=== PATIENT | female | born 1960 | race Caucasian/White ===

== ENCOUNTER 2019-05-08 12:54 | Emergency (ER) | payer MEDICARE, MEDICAID ==
[~2019-05-08] VITALS: Ht 167 cm; Wt 83.3 kg
--- NOTE | 2019-05-08 13:18 | ED GI ---
General Stated Complaint: DIARRHEA Source of Information: Patient Exam Limitations: No Limitations History of Present Illness Date Seen by Provider: May 08, 2019 Time Seen by Provider: 13:10 Initial Comments 58-year-old female brought in with diarrhea. Patient has had diarrhea for 2 weeks. However she also has a history of diarrhea on and off for years. She reports her this round her diarrhea has been going on for 2 weeks. She has seen her primary care provider and had stool studies done but does not know the results. Patient is had labs that did not show anything irregular and an outpatient basis. Patient is currently not taking anything for it. Patient was diagnosed with a UTI started on Macrobid however this was after the diarrhea started. Patient reports that she is having difficulty controlling the diarrhea and comes in because of that. Allergies and Home Medications Allergies Coded Allergies: ciprofloxacin (Unverified Adverse Reaction, Unknown, 05/08/19) prednisone (Unverified Adverse Reaction, Unknown, 05/08/19) soap (Unverified Adverse Reaction, Unknown, 05/08/19) Dial Soap Home Medications Albuterol Sulfate 1 Puff Puff, 2 PUFF INH Q6H PRN for SHORTNESS OF BREATH, (Reported) 1 PUFF = 90 MCG Biotin 10 Mg Tablet, 10 MG PO DAILY, (Reported) Ferrous Sulfate 325 Mg Tablet, 325 MG PO DAILY, (Reported) Glimepiride 2 Mg Tablet, 2 MG PO DAILY, (Reported) Lisinopril/Hydrochlorothiazide 1 Each Tablet, 1 TAB PO DAILY, (Reported) Multivitamin 1 Each Tablet, 1 EACH PO DAILY, (Reported) Patient Home Medication List Home Medication List Reviewed: Yes Review of Systems Review of Systems Constitutional: No chills, No fever Respiratory: Denies Cough Cardiovascular: Denies Chest Pain Gastrointestinal: Denies Abdominal Pain; Diarrhea, Nausea Genitourinary: No Symptoms Reported Musculoskeletal: no symptoms reported Skin: no symptoms reported Past Dutdius-Ltiqyu-Ofvizk Hx Past Med/Social Hx: Reviewed Nursing Past Med/Soc Hx Patient Social History Recent Foreign Travel: No Contact w/Someone Who Travel: No Physical Exam Vital Signs Vital Signs - First Documented 05/08/19 13:00 Temp 36.4 Pulse 73 Resp 16 B/P (MAP) 120/72 (88) Pulse Ox 98 O2 Delivery Room Air Capillary Refill : Height/Weight/BMI Height: '" Weight: lbs. oz. kg; BMI Method: General Appearance: WD/WN, no apparent distress HEENT: PERRL/EOMI Respiratory: lungs clear, normal breath sounds Cardiovascular: normal peripheral pulses, regular rate, rhythm Gastrointestinal: non tender, soft Back: no CVA tenderness Neurologic/Psychiatric: no motor/sensory deficits, alert Skin: normal color, warm/dry Progress/Results/Core Measures Results/Orders Lab Results Laboratory Tests Test 05/08/19 13:20 Range/Units White Blood Count 6.5 4.3-11.0 10^3/uL Red Blood Count 4.30 L 4.35-5.85 10^6/uL Hemoglobin 12.1 11.5-16.0 G/DL Hematocrit 37 35-52 % Mean Corpuscular Volume 85 80-99 FL Mean Corpuscular Hemoglobin 28 25-34 PG Mean Corpuscular Hemoglobin Concent 33 32-36 G/DL Red Cell Distribution Width 12.4 10.0-14.5 % Platelet Count 184 130-400 10^3/uL Mean Platelet Volume 10.0 7.4-10.4 FL Neutrophils (%) (Auto) 73 42-75 % Lymphocytes (%) (Auto) 12 12-44 % Monocytes (%) (Auto) 13 H 0-12 % Eosinophils (%) (Auto) 2 0-10 % Basophils (%) (Auto) 1 0-10 % Neutrophils # (Auto) 4.8 1.8-7.8 X 10^3 Lymphocytes # (Auto) 0.8 L 1.0-4.0 X 10^3 Monocytes # (Auto) 0.9 0.0-1.0 X 10^3 Eosinophils # (Auto) 0.1 0.0-0.3 10^3/uL Basophils # (Auto) 0.0 0.0-0.1 10^3/uL Sodium Level 136 135-145 MMOL/L Potassium Level 4.1 3.6-5.0 MMOL/L Chloride Level 95 L 98-107 MMOL/L Carbon Dioxide Level 26 21-32 MMOL/L Anion Gap 15 H 5-14 MMOL/L Blood Urea Nitrogen 23 H 7-18 MG/DL Creatinine 1.46 H 0.60-1.30 MG/DL Estimat Glomerular Filtration Rate 37 BUN/Creatinine Ratio 16 Glucose Level 150 H 70-105 MG/DL Calcium Level 9.9 8.5-10.1 MG/DL Corrected Calcium 9.6 8.5-10.1 MG/DL Total Bilirubin 0.7 0.1-1.0 MG/DL Aspartate Amino Transf (AST/SGOT) 23 5-34 U/L Alanine Aminotransferase (ALT/SGPT) 14 0-55 U/L Alkaline Phosphatase 72 40-136 U/L Total Protein 8.0 6.4-8.2 GM/DL Albumin 4.4 3.2-4.5 GM/DL My Orders Orders - GAMING,LOU L DO Cbc With Automated Diff (05/08/19 13:09) Comprehensive Metabolic Panel (05/08/19 13:09) Abdomen Flat & Upright/Decub (05/08/19 13:09) Ed Iv/Invasive Line Start (05/08/19 13:47) Iohexol Injection (Omnipaque 350 Mg/Ml 1 (05/08/19 14:00) Received Contrast (Hold Metformin- Contr (05/08/19 14:00) Sodium Chloride Flush (Catheter Flush Sy (05/08/19 14:00) Ns (Ivpb) (Sodium Chloride 0.9% Ivpb Bag (05/08/19 14:00) Ed Iv/Invasive Line Start (05/08/19 13:57) Ns Iv 1000 Ml (Sodium Chloride 0.9%) (05/08/19 13:57) Ct Abdomen/Pelvis Wo (05/08/19 13:47) Vital Signs/I&O 05/08/19 13:00 Temp 36.4 Pulse 73 Resp 16 B/P (MAP) 120/72 (88) Pulse Ox 98 O2 Delivery Room Air Progress Progress Note : Time: 15:00 Progress Note Patient with high-grade small bowel obstruction on CT with 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 Discussed with family and they requested transfer to [facility] on the plasma. They have a previous relationship with an oncologist in that area. Patient is stable. Will be kept nothing by mouth started on fluids and transferred in stable condition. 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 Patient requests transfer to [facility]. Transfer Facility: [facility] Method of Transfer: EMS Departure-Patient Inst. Referrals: [facility] (PCP/Family) Primary Care Physician LOU GAMING DO May 08, 2019 13:18
[2019-05-08 13:30] LABS: HEMATOCRIT 37 % (35-52); HEMOGLOBIN 12.1 G/DL (11.5-16.0); MEAN CORPUSCULAR HEMOGLOBIN 28 PG (25-34); MEAN CORPUSCULAR HGB CONC 33 G/DL (32-36); MEAN CORPUSCULAR VOLUME 85 FL (80-99); PLATELET COUNT 184 10^3/uL (130-400); RED CELL DISTRIBUTION WIDTH 12.4 % (10.0-14.5); WHITE BLOOD COUNT 6.5 10^3/uL (4.3-11.0)
[2019-05-08 13:31] LABS: BASOPHILS % (AUTO) 1 % (0-10); EOSINOPHILS # (AUTO) 0.1 10^3/uL (0.0-0.3); EOSINOPHILS % (AUTO) 2 % (0-10); LYMPHOCYTES # (AUTO) 0.8 X 10^3 (1.0-4.0); LYMPHOCYTES % (AUTO) 12 % (12-44); MONOCYTES # (AUTO) 0.9 X 10^3 (0.0-1.0); MONOCYTES % (AUTO) 13 % (0-12); NEUTROPHILS # (AUTO) 4.8 X 10^3 (1.8-7.8); NEUTROPHILS % (AUTO) 73 % (42-75)
--- NOTE | 2019-05-08 13:42 | Diagnostic Imaging Report ---
INDICATION: Diarrhea for two weeks. TIME OF EXAM: 01:09 p.m. FINDINGS: There is significant gaseous distention of bowel loops in the central abdomen. This may involve small and large bowel. No definite wall thickening or pneumatosis is seen. No free air is identified. IMPRESSION: Significant gaseous distention of small and large bowel with air-fluid levels. Further evaluation with CT would be useful for better characterization. No definite free air is detected. Dictated by: Dictated on workstation # [id number]
[2019-05-08 13:55] LABS: BILIRUBIN,TOTAL 0.7 MG/DL (0.1-1.0); CALCIUM 9.9 MG/DL (8.5-10.1); CREATININE SERUM 1.46 MG/DL (0.60-1.30); POTASSIUM 4.1 MMOL/L (3.6-5.0)
[2019-05-08 13:56] LABS: ALBUMIN 4.4 GM/DL (3.2-4.5)
[2019-05-08] MEDS ORDERED: BIOT10TA PO (13:57)
[2019-05-08] MEDS ORDERED: NS IV 1000 ML 1,000 ML IV SCH (13:57)
[2019-05-08] MEDS ORDERED: MULT-974 PO (13:57)
[2019-05-08] MEDS ORDERED: NYST15PO2 (13:57)
[2019-05-08] MEDS ORDERED: GLIM2TAB PO (13:57)
[2019-05-08] MEDS ORDERED: RT-ALBUINH INH (13:57)
[2019-05-08] MEDS ORDERED: LISI1TAB8 PO (13:57)
[2019-05-08] MEDS ORDERED: PRAV40TA2 (13:57)
[2019-05-08] MEDS ORDERED: NITR100C10 (13:57)
[2019-05-08] MEDS ORDERED: FERR325T18 PO (13:57)
[2019-05-08] MEDS ORDERED: HOLD METFORMIN - RECEIVED CONTRAST 20 ML VIAL IV SCH (14:00)
[2019-05-08] MEDS ORDERED: NS 100 ML (IVPB) BAG IV ONE (14:00)
[2019-05-08] MEDS ORDERED: IOHEXOL 350 MG/ML 100 ML (OMNIPAQUE 350) VIAL IV ONE (14:00)
[2019-05-08] MEDS ORDERED: CATHETER FLUSH 10 ML SYR IV PRN (14:00)
--- NOTE | 2019-05-08 14:41 | Diagnostic Imaging Report ---
PROCEDURE: CT abdomen and pelvis without contrast. TECHNIQUE: Multiple contiguous axial images were obtained through the abdomen and pelvis without the use of intravenous contrast. Auto Exposure Controls were utilized during the CT exam to meet ALARA standards for radiation dose reduction. INDICATION: Diarrhea for two weeks and abnormal x-ray. COMPARISON: Correlation is made with abdominal radiograph earlier the same day. FINDINGS: Lung bases are free of acute infiltrates. No discrete liver mass is detected. Gallbladder is unremarkable. No biliary ductal dilatation is seen. Pancreas and spleen are unremarkable. No adrenal mass is detected. No renal calculi or hydronephrosis is identified. Aorta is non-aneurysmal. There are markedly fluid-filled and distended small bowel loops throughout the abdomen. There is an abnormal soft tissue masslike density in the right lower quadrant adjacent to the cecum or arising from the cecum. This could be a mass either within the terminal ileum or cecum. There are numerous lobulated soft tissue masses as well throughout the mesentery likely representing marianela masses. A conglomerate of nodes in the midline measures 7.4 x 4.2 cm. Another conglomerate of nodes in the right abdomen measures approximately 8.9 x 2.9 cm. There are multiple prominent lymph nodes in the central retroperitoneum as well. There is no free fluid or fluid collection. There is a lobulated contour to the uterus which likely contains a large mass. This measures 6.9 cm AP by 9.0 cm transverse. No inguinal or iliac lymphadenopathy is detected. Bony structures are nonacute. IMPRESSION: 1. There is significant fluid filled distention of the small bowel, traced to the terminal ileum. There is probable mass in the region of the ileocecal valve. This is likely creating high-grade small bowel obstruction. In addition, there are multiple soft tissue masses throughout the mesentery suggestive of metastatic disease. There is also some central retroperitoneal lymphadenopathy. No liver mass is identified. Note is made of a large uterine mass which is indeterminate but could represent a large fibroid. The appendix is visualized and unremarkable. Dictated by: Dictated on workstation # [id number]
--- NOTE | 2019-05-08 14:45 | NUR ---
RN entered room with Dr Márquez to discuss CT abd/pelvis result. Discussed the findings that are compared by Dr Márquez and RN with a CT report for abd/pelvis 04/23/18 from a [facility] record defining the same similar results but worsened now. It reflects a provider made a referral to [facility] [address] [place] [address] [address], [place] [address] for [facility] oncologist preferred on 04/23/2018. Date of appt was not charted. Patient's comprehesion not clear at this time, the patient's sister present requests out referral to [facility] where she has a specialist that has seen her for iron deficiency anemia. Sister reports she knows they were "keeping an eye on the ileum" but they have never been told cancerous. The patient was seen for appearent acute illnesses r/t anemia followed by a Cholecystectomy.
--- NOTE | 2019-05-08 14:59 | NUR ---
Accepted at [facility] on the [place] but await a room assignment. Pt and sister notified.
[2019-05-08] MEDS ORDERED: NS IV 1000 ML 1,000 ML IV ONE (15:05)
--- NOTE | 2019-05-08 15:15 | NUR ---
Pt signed her consent for transfer to [facility]. Pt repeats she knows she is being admitted to a hospital for her diarrhea and doesn't think they will have to do surgery.
--- NOTE | 2019-05-08 15:42 | NUR ---
Called to [facility] to request status of transfer planning, checking on room number. Spoke with Harlan and she reports they will want [place] and then will return call for report.
--- NOTE | 2019-05-08 15:45 | NUR ---
Pt's sister reports if transfer does not start soon she will request to go to another location.
--- NOTE | 2019-05-08 16:20 | NUR ---
Paged for [facility] to transport to [facility].
--- NOTE | 2019-05-08 16:22 | NUR ---
Was notified by [employer] Dispatch that no transfers will be done until the Triath[facility] will be done in [facility].
--- NOTE | 2019-05-08 16:24 | NUR ---
[facility] notified ED that [facility] is putting themself back in service and will arrive shortly.
--- NOTE | 2019-05-08 16:30 | NUR ---
[facility] arriving.
--- NOTE | 2019-05-08 16:40 | NUR ---
Pt has went to bathroom to void and try for any further stool before transport. Denies abd pain and continues to report no N/V.
--- NOTE | 2019-05-08 16:44 | NUR ---
Fe mcginnis in EDM - 05/08/19 at 1740 by CKOPPA The [facility] called stating the [facility] have put themselves back in service to arrive shortly.
[2019-05-08 16:45] VITALS: BP 103/65
--- NOTE | 2019-05-08 16:45 | NUR ---
Patient departing ER in stable condition for transfer to [facility] on the [place] via [facility]. IV is saline locked at this time. Pt wearing pads in underwear for protection again diarrhea potential episode. Refusal of offer for depends pull up. Sister departing ER at this time.
--- NOTE | 2019-05-08 16:45 | NUR ---
Call to [facility] at [facility] and reported departure and the ETA.
== END 2019-05-08 16:45 | disposition short-term general hospital (02) ==
LOC: ER FS 12:57
DX: K56.609 Unspecified intestinal obstruction, unspecified as to partial versus complete obstruction (principal); D37.2 Neoplasm of uncertain behavior of small intestine; Z88.1 Allergy status to other antibiotic agents; Z88.8 Allergy status to other drugs, medicaments and biological substances
CPT/HCPCS: 36415; 74019; 74176; 80053; 85025

== ENCOUNTER 2023-05-29 10:05 | Emergency (ER) | payer MEDICARE, MEDICAID ==
[~2023-05-29] VITALS: Ht 160 cm; Wt 80.0 kg
[~2023-05-29 10:05] MED LIST: BIOT10TA PO; FERR325T18 PO; GLIM2TAB4 PO; LISI1TAB46 PO; MULT-974 PO; NITR100C10; NYST15PO2; PRAV40TA2; RT-ALBUINH INH
[2023-05-29 10:15] VITALS: BP 112/75
--- NOTE | 2023-05-29 10:24 | ED Cough/URI ---
General Chief Complaint: Fever-Adult/Adol Stated Complaint: FEVER Source: patient Exam Limitations: no limitations History of Present Illness Date Seen by Provider: May 29, 2023 Time Seen by Provider: 10:20 Initial Comments 62-year-old female is brought to the ER by her family secondary to intermittent fever and cough for the past 4 days. Patient is on palliative chemotherapy for lymphoma. No shortness of breath reported or chest pain. Patient has been using Tylenol intermittently with good control of fever. She states that she has some mild intermittent dizziness which is normal for her and otherwise feels okay. Allergies and Home Medications Allergies Coded Allergies: ciprofloxacin (Unverified Adverse Reaction, Unknown, 05/08/19) prednisone (Unverified Adverse Reaction, Unknown, 05/08/19) soap (Unverified Adverse Reaction, Unknown, 05/08/19) Dial Soap Patient Home Medication List Home Medication List Reviewed: Yes Albuterol Sulfate (Ventolin Hfa) 1 Puff Puff, 2 PUFF INH Q6H PRN for SHORTNESS OF BREATH, (Reported) Entered as Reported by: ELDER BRUNNER on 05/08/191356 Biotin (Biotin) 10 Mg Tablet, 10 MG PO DAILY, (Reported) Entered as Reported by: ELDER BRUNNER on 05/08/191356 Ferrous Sulfate (Ferrous Sulfate) 325 Mg Tablet, 325 MG PO DAILY, (Reported) Entered as Reported by: ELDER BRUNNER on 05/08/191356 Glimepiride (Glimepiride) 2 Mg Tablet, 2 MG PO DAILY, (Reported) Entered as Reported by: ELDER BRUNNER on 05/08/191356 Lisinopril/Hydrochlorothiazide (Lisinopril-Hctz 20-12.5 mg Tab) 1 Each Tablet, 1 TAB PO DAILY, (Reported) Entered as Reported by: ELDER BRUNNER on 05/08/191356 Multivitamin (Multi-Vitamin Daily) 1 Each Tablet, 1 EACH PO DAILY, (Reported) Entered as Reported by: ELDER BRUNNER on 05/08/191356 Nitrofurantoin Monohyd/M-Cryst (Nitrofurantoin [place]-Mcr 100 mg) 100 Mg Capsule, (Reported) Entered as Reported by: ELDER BRUNNER on 10/13/19 1357 Nystatin (Nyamyc) 15 Gm Powder, (Reported) Entered as Reported by: ELDER BRUNNER on 05/08/19 135 Pravastatin Sodium (Pravastatin Sodium) 40 Mg Tablet, (Reported) Entered as Reported by: ELDER BRUNNER on 05/08/19 135 Review of Systems Review of Systems Constitutional: see HPI (All other systems negative except as documented in HPI.) Past Mqqimhz-Nghxny-Bsrxwt Hx Seasonal Allergies Seasonal Allergies: No Past Medical History Surgeries: Yes (ORIF R ankle fx, Colonoscopy) Section, Gallbladder, Orthopedic Respiratory: Yes (Hx lung nodule, hx pneumonia and acute bronchitis) COPD Cardiac: Yes (Coronary athersclerosis) High Cholesterol, Hypertension Neurological: Yes (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 present to provide pt's hx)) Developmental Disorder Genitourinary: Yes (Renal Insufficiency hx/decreased renal function) Gastrointestinal: Yes (Mesenteric and retroperitoneal lymphadenopathy hx, Hx Intestinal mass) Chronic Diarrhea Musculoskeletal: Yes Fractures Endocrine: Yes (Last record available 04/23/18 HgB A1C -6.7) Diabetes, Non-Insulin dep HEENT: No Cancer: No Psychosocial: Yes (Situational stressors, Developmental delay) Sleep Difficulties, Anxiety Integumentary: Yes (Hx of skin infections, perioral dermatitis, lick-licking eczema) Eczema, Psoriasis Blood Disorders: Yes (Anemia and is on iron) Adverse Reaction/Blood Tranf: No Physical Exam Vital Signs - First Documented 05/29/23 10:15 Temp 38.2 Pulse 117 Resp 18 B/P (MAP) 112/75 (87) Pulse Ox 100 O2 Delivery Room Air Capillary Refill : Height: '" Weight: lbs. oz. kg; 29.00 BMI Method: General Appearance: WD/WN, no apparent distress Eyes: Right Eye Normal Inspection, Right Eye PERRL, Right Eye EOMI, Right Eye A bnormal EOM; Bilateral Eye Normal Inspection, Bilateral Eye PERRL, Bilateral Eye EOMI HEENT: PERRL/EOMI, normal ENT inspection, TMs normal, pharynx normal Neck: non-tender, full range of motion, supple, normal inspection, carotid bruit Respiratory: chest non-tender, lungs clear, normal breath sounds, no respiratory distress, no accessory muscle use, respiratory distress Cardiovascular: normal peripheral pulses, regular rate, rhythm, no edema, no gallop, no JVD, no murmur Gastrointestinal: normal bowel sounds, non tender, soft, no organomegaly, no pulsatile mass Genital/Rectal: normal genital exam; No normal genital exam Extremities: normal range of motion, non-tender, normal inspection, no pedal edema, no calf tenderness, normal capillary refill, pelvis stable Neurologic/Psychiatric: 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, no motor/sensory deficits, alert, normal mood/affect, oriented x 3 Skin: normal color, warm/dry, cyanosis, cool, diaphoresis, damp Lymphatic: no adenopathy, axilla node tender (R), axilla node tender (L), inguinal node tender (R), inguinal node tender (L) Focused Exam Lactate Level 05/29/23 10:15: Lactic Acid Level 2.33*H Lactic Acid Level Laboratory Tests Test 05/29/23 10:15 Lactic Acid Level 2.33 MMOL/L (0.50-2.00) *H Progress/Results/Core Measures Suspected Sepsis SIRS Temperature: Pulse: Respiratory Rate: Laboratory Tests 05/29/23 10:15: White Blood Count 7.0 Blood Pressure / Mean: 05/29/23 10:15: Lactic Acid Level 2.33*H Laboratory Tests 05/29/23 10:15: Creatinine 1.15, Platelet Count 19*L, Total Bilirubin 2.0H Results/Orders Lab Results Laboratory Tests Test 05/29/23 10:15 05/29/23 10:21 Range/Units White Blood Count 7.0 4.3-11.0 10^3/uL Red Blood Count 2.22 L 3.80-5.11 10^6/uL Hemoglobin 6.3 *L 11.5-16.0 g/dL Hematocrit 21 L 35-52 % Mean Corpuscular Volume 96 80-99 fL Mean Corpuscular Hemoglobin 28 25-34 pg Mean Corpuscular Hemoglobin Concent 30 L 32-36 g/dL Red Cell Distribution Width 19.2 H 10.0-14.5 % Platelet Count 19 *L 130-400 10^3/uL Mean Platelet Volume 10.9 9.0-12.2 fL Immature Granulocyte % (Auto) 4 % Neutrophils (%) (Auto) 51 42-75 % Lymphocytes (%) (Auto) 5 L 12-44 % Monocytes (%) (Auto) 33 H 0-12 % Eosinophils (%) (Auto) 7 0-10 % Basophils (%) (Auto) 0 0-10 % Neutrophils # (Auto) 3.6 1.8-7.8 10^3/uL Lymphocytes # (Auto) 0.4 L 1.0-4.0 10^3/uL Monocytes # (Auto) 2.3 H 0.0-1.0 10^3/uL Eosinophils # (Auto) 0.5 H 0.0-0.3 10^3/uL Basophils # (Auto) 0.0 0.0-0.1 10^3/uL Immature Granulocyte # (Auto) 0.3 H 0.0-0.1 10^3/uL Neutrophils % (Manual) 69 % Lymphocytes % (Manual) 9 % Monocytes % (Manual) 8 % Eosinophils % (Manual) 14 % Nucleated Red Blood Cells 2 Sodium Level 139 135-145 MMOL/L Potassium Level 4.6 3.6-5.0 MMOL/L Chloride Level 101 98-107 MMOL/L Carbon Dioxide Level 24 21-32 MMOL/L Anion Gap 14 5-14 MMOL/L Blood Urea Nitrogen 18 7-18 MG/DL Creatinine 1.15 0.60-1.30 MG/DL Estimat Glomerular Filtration Rate 54 BUN/Creatinine Ratio 16 Glucose Level 186 H 70-105 MG/DL Lactic Acid Level 2.33 *H 0.50-2.00 MMOL/L Calcium Level 8.9 8.5-10.1 MG/DL Corrected Calcium 8.9 8.5-10.1 MG/DL Total Bilirubin 2.0 H 0.1-1.0 MG/DL Aspartate Amino Transf (AST/SGOT) 27 5-34 U/L Alanine Aminotransferase (ALT/SGPT) 21 0-55 U/L Alkaline Phosphatase 111 40-136 U/L Total Protein 6.0 L 6.4-8.2 GM/DL Albumin 4.0 3.2-4.5 GM/DL Smear Scan PLTS DESCREAED Influenza Type A (RT-PCR) Not Detected Not Detecte Influenza Type B (RT-PCR) Not Detected Not Detecte SARS-CoV-2 RNA (RT-PCR) Not Detected Not Detecte My Orders Orders - JOSÉ ANTONIO DEL CID DO Cbc And Automated Diff (05/29/23 10:16) Comprehensive Metabolic Panel (05/29/23 10:16) Lactic Acid Analyzer (05/29/23 10:16) Blood Culture (05/29/23 10:16) Chest 1 View Ap/Pa Only (05/29/23 10:16) Covid 19 Inhouse Test (05/29/23 10:16) Influenza A And B By Pcr (05/29/23 10:16) Ns Iv 500 Ml (Ns Iv 500 Ml) (05/29/23 10:30) Ibuprofen Tablet (Ibuprofen Tablet) (05/29/23 10:30) Manual Differential (05/29/23 10:15) Cefepime Injection (Cefepime Injection) (05/29/23 12:30) Medications Given in ED Current Medications Medications Dose Ordered Sig/Pako Route Start Time Stop Time Status Last Admin Dose Admin Ibuprofen 400 mg ONCE ONCE PO 05/29/23 10:30 05/29/23 10:31 DC 05/29/23 10:55 400 MG Vital Signs/I&O 05/29/23 05/29/23 10:15 11:41 Temp 38.2 Pulse 117 101 Resp 18 18 B/P (MAP) 112/75 (87) 106/47 (66) Pulse Ox 100 94 O2 Delivery Room Air Room Air Capillary Refill : Progress Note : Time: 10:24 Progress Note Patient seen for cough and intermittent fever. Vital signs stable. Given that the patient is on chemotherapy will initiate septic work-up with blood cultures and lactic acid. 500 cc normal saline bolus to start. 1118: Work-up complete except for COVID and flu at this time. Patient did have a fever but has no signs of infection otherwise. Her chest x-ray is normal. She is anemic and thrombocytopenic which is a chronic condition for her but today she falls below transfusion threshold. Her sister who is her DPOA is at bedside and reports the patient normally has her labs checked every 2 weeks and 10 days ago she had a hemoglobin of 6.4 and platelets of 26 and she received 1 unit transfusion at that time. Given the patient's fever and need for tra nsfusion will initiate contact with [facility] which is where the patient normally receives her care and discuss transfer. 1126: COVID and flu negative. Contact initiated with [facility] and currently awaiting callback. 1220: Patient has been accepted by Dr. Neri. They request start cefepime so we will give 2 g IV. Await bed. Patient cleared to go by private vehicle. Departure Impression Primary Impression: Fever Additional Impressions: Anemia Thrombocytopenia Disposition: XFER SHT-TRM HOSP Condition: Stable Transfer Transfer Reason: Exceeds level of care Time Spoke to Accepting Phy: 12:15 (I spoke to marketing and outreach coordinator at .) Transfer Facility: [facility] Method of Transfer: Private Vehicle Departure-Patient Inst. Referrals: MARQUITA WINSTON (PCP) Primary Care Physician JENNIFER DEL CID MD (Family) Primary Care Physician JOSÉ ANTONIO DEL CID DO May 29, 2023 10:24
[2023-05-29] MEDS ORDERED: IBUPROFEN 200 MG TABLET PO ONE (10:30)
[2023-05-29] MEDS ORDERED: NS IV 500 ML 500 ML IV SCH (10:30)
--- NOTE | 2023-05-29 10:52 | Diagnostic Imaging Report ---
CHEST 1 VIEW AP/PA ONLY Indication: Cough and fever Comparison: None available. Findings: No focal airspace disease in the visualized lungs. No pleural effusion or pneumothorax. Normal cardiomediastinal silhouette. Right IJ Port-A-Cath has tip terminating in lower SVC. Impression: 1. No acute cardiopulmonary process by portable radiography. Dictated by: Dictated on workstation # [id number]
[2023-05-29 10:57] LABS: BASOPHILS % (AUTO) 0 % (0-10); EOSINOPHILS # (AUTO) 0.5 10^3/uL (0.0-0.3); EOSINOPHILS % (AUTO) 7 % (0-10); HEMATOCRIT 21 % (35-52); LYMPHOCYTES # (AUTO) 0.4 10^3/uL (1.0-4.0); LYMPHOCYTES % (AUTO) 5 % (12-44); MEAN CORPUSCULAR HEMOGLOBIN 28 pg (25-34); MEAN CORPUSCULAR HGB CONC 30 g/dL (32-36); MEAN CORPUSCULAR VOLUME 96 fL (80-99); MEAN PLATELET VOLUME 10.9 fL (9.0-12.2); MONOCYTES # (AUTO) 2.3 10^3/uL (0.0-1.0); MONOCYTES % (AUTO) 33 % (0-12); NEUTROPHILS # (AUTO) 3.6 10^3/uL (1.8-7.8); NEUTROPHILS % (AUTO) 51 % (42-75)
[2023-05-29 11:11] LABS: HEMOGLOBIN 6.3 g/dL (11.5-16.0); PLATELET COUNT 19 10^3/uL (130-400)
[2023-05-29 11:13] LABS: CALCIUM 8.9 MG/DL (8.5-10.1); POTASSIUM 4.6 MMOL/L (3.6-5.0)
[2023-05-29 11:19] LABS: CREATININE SERUM 1.15 MG/DL (0.60-1.30)
[2023-05-29 11:46] LABS: EOSINOPHILS % (MANUAL) 14 %; LYMPHOCYTES % (MANUAL) 9 %; MONOCYTES % (MANUAL) 8 %; NEUTROPHILS % (MANUAL) 69 %; NUCLEATED RED BLOOD CELLS 2
[2023-05-29] MEDS ORDERED: CEFEPIME INJECTION 2,000 MG in NS (IVPB) 50 ML 50 ML IV ONE (12:30)
== END 2023-05-29 14:12 | disposition short-term general hospital (02) ==
LOC: EDUNIT# 10:05 → ER FS 10:06
DX: R50.9 Fever, unspecified (principal); D64.9 Anemia, unspecified; D69.6 Thrombocytopenia, unspecified; C85.90 Non-Hodgkin lymphoma, unspecified, unspecified site; Z79.899 Other long term (current) drug therapy
CPT/HCPCS: 36415; 71045; 80053; 83605; 85007; 85027; 87040; 87636; 96361; 96365